=== PATIENT | male | born 1995 | race Caucasian/White ===

== ENCOUNTER 2024-06-16 18:53 | Emergency (ER) | payer OTHER ==
[~2024-06-16] VITALS: Ht 177.8 cm; Wt 88.9 kg
[2024-06-16 18:57] VITALS: BP 140/91; PULSE 93; RESP 20; TEMP 98.2; O2SAT 100
== END 2024-06-16 19:29 | disposition home or self-care (01) ==
LOC: MED 18:53
DX: F32.A Depression, unspecified (principal); F41.9 Anxiety disorder, unspecified
CPT/HCPCS: 99281